=== PATIENT | male | born 1950 ===

== ENCOUNTER 2017-03-10 00:41 | Emergency (ER) | payer MEDICARE, OTHER ==
[2017-03-10 00:45] VITALS: TEMP 98.4
--- NOTE | 2017-03-10 01:25 | C.PDOC ---
History Of Present Illness A 66 y/o male c/o a nose bleed that began a half hour ago to the right nare. No active bleeding is noted currently. Pt denies trauma to the nose, lightheadedness, dizziness, headache, anticoagulant use, weakness, chills, or URI symptoms. Time Seen by Provider: 03/10/17 01:24 Chief Complaint (Nursing): ENT Problem History Per: Patient History/Exam Limitations: None Onset/Duration Of Symptoms: Mins Current Symptoms Are (Timing): Gone Severity: Mild Pain Scale Rating Of: 2 Anticoagulant/Antiplatlet Use?: No Recent Aspirin Use: No Past Medical History Reviewed: Historical Data, Nursing Documentation, Vital Signs Vital Signs: Last Vital Signs Temp 98.4 F 03/10/17 00:42 Pulse 76 03/10/17 00:42 Resp 20 03/10/17 00:42 BP 170/81 H 03/10/17 01:27 Pulse Ox 98 03/10/17 02:18 - Medical History PMH: HTN Denies: Chronic Kidney Disease Family History: States: No Known Family Hx - Social History Hx Alcohol Use: No Hx Substance Use: No - Immunization History Hx Tetanus Toxoid Vaccination: No Hx Influenza Vaccination: No Hx Pneumococcal Vaccination: No Review Of Systems Constitutional: Negative for: Chills ENT: Positive for: Nose Discharge (Right nare bleed). Negative for: Nose Congestion, Throat Pain, Other (Trauma to the nose) Cardiovascular: Negative for: Light Headedness Respiratory: Negative for: Cough Neurological: Negative for: Weakness, Headache, Dizziness Psych: Negative for: Anxiety Physical Exam - Physical Exam Appears: Non-toxic, No Acute Distress Skin: Warm, Dry Head: Normacephalic Eye(s): bilateral: Normal Inspection Nose: Epistaxis (Small dry blood in the right nare, no active bleeding noted. Pressure applied with no active bleeding.), No Deformity, No Tenderness, No Septal Hematoma Oral Mucosa: Moist Throat: Normal, No Exudate ED Course And Treatment O2 Sat by Pulse Oximetry: 98 (RA) Pulse Ox Interpretation: Normal Reevaluation Time: 02:53 Reassessment Condition: Improved Disposition Counseled Patient/Family Regarding: Studies Performed, Diagnosis, Need For Followup - Disposition Referrals: Osvaldo Torres MD [Staff Provider] - Keenan Hodge MD [Staff Provider] - Disposition: HOME/ ROUTINE Disposition Time: 01:25 Condition: FAIR Additional Instructions: Please return if symptoms recur Instructions: Nosebleed (ED) Print Language: BERMUDIAN - Clinical Impression Clinical Impression: Epistaxis - Scribe Statement The provider has reviewed the documentation as recorded by the Scribe Yovani knight All medical record entries made by the Rachaelibe were at my direction and personally dictated by me. I have reviewed the chart and agree that the record accurately reflects my personal performance of the history, physical exam, medical decision making, and the department course for this patient. I have also personally directed, reviewed, and agree with the discharge instructions and disposition.
[2017-03-10 02:54] VITALS: BP 167/70; PULSE 74; RESP 16
[2017-03-10 02:56] VITALS: O2SAT 98
== END 2017-03-10 03:12 | disposition home or self-care (01) ==
LOC: C.ER 00:41
DX: R04.0 Epistaxis (principal)

== ENCOUNTER 2018-02-19 06:11 | Day surgery (SDC) | payer MEDICARE, OTHER ==
[2018-02-13 10:37] VITALS: BMI 28.8
[2018-02-19] MEDS ORDERED: Gentamicin 160 MG in Sodium Chloride 0.9% 100 ML IVPB ONE (07:30)
[2018-02-19] MEDS ORDERED: cefTRIAXone IV 1 gm in Dextros 50 ML IVPB ONE (08:37)
[2018-02-19] MEDS ORDERED: Lidocaine 2% Jelly (Uro-Jet) ONE (08:37)
[2018-02-19] MEDS ORDERED: Propofol 10 mg/ml Inj (20 ML) ONE (08:51)
[2018-02-19] MEDS ORDERED: Midazolam 2 MG/2 ML VIAL ONE (08:51)
[2018-02-19 11:01] VITALS: RESP 18; O2SAT 98
[2018-02-19 13:11] VITALS: BP 120/60; PULSE 72; TEMP 97.8
--- NOTE | 2018-02-19 20:35 | OP ---
PROCEDURE DATE: 02/19/2018 PREOPERATIVE DIAGNOSIS: Prostate-specific antigen 7.02. POSTOPERATIVE DIAGNOSIS: Prostate-specific antigen 7.02. PROCEDURE: Transrectal ultrasound diagnostic, transrectal ultrasound guidance, and prostatic biopsy. SURGEON: Seb Quesada MD DESCRIPTION OF PROCEDURE: The patient confirmed in the holding area via an lang interpreter. He has not been taking his clopidogrel for at least a month or two and has not been taking aspirin or NSAIDs for over 10 days as well. He was told that in the unlikely event he develops postoperative chills or fever, he is to call me immediately and if there is no immediate response, to go right to the emergency room. The patient was brought to the operating room, placed in the lithotomy position under anesthesia. His rectum was cleansed with Betadine and he was given Rocephin 1 g and gentamicin 160 mg IV piggyback. Transrectal ultrasound for diagnosis was performed with a B and K transducer. There were no focal hypoechoic lesions. No areas of calcifications were noted. The total volume was 81.6 cm3. We then proceeded with prostate biopsies by dividing the prostate into six sextant and submitting two specimens per sextant for a total of 12 to Pathology. We then maintained pressure for five minutes with a transducer to promote hemostasis and upon removal no active bleeding was noted. The patient tolerated the procedure well. Seb Quesada MD
== END 2018-02-19 12:30 | disposition home or self-care (01) ==
LOC: C.SDS 06:11
PROVIDERS: ATTEND Urology
DX: N40.0 Benign prostatic hyperplasia without lower urinary tract symptoms (principal)
CPT/HCPCS: 55700; 82948; 88305; 88342; J0696; J1580